=== PATIENT | male | born 1995 | race Caucasian/White ===

== ENCOUNTER 2024-10-14 08:23 | Emergency (ER) | payer SELFPAY ==
[2024-10-14 08:53] LABS: BASOPHILS ABSOLUTE AUTO 0.03 K/uL (0.00-0.20); BASOPHILS PERCENT AUTO 0.5 % (0.0-2.0); EOSINOPHILS ABSOLUTE AUTO 0.09 K/uL (0.00-0.50); EOSINOPHILS PERCENT AUTO 1.5 % (0.0-5.0); HEMATOCRIT 47.5 % (39.0-49.0); HEMOGLOBIN 15.1 g/dL (13.1-16.8); IMMATURE GRAN ABSOLUTE AUTO 0.02 10^3/uL (0.00-0.04); IMMATURE GRAN PERCENT AUTO 0.3 % (0.0-0.4); LYMPHOCYTES ABSOLUTE AUTO 2.11 K/uL (0.50-3.50); MEAN CORPUSCULAR HEMOGLOBIN 23.4 pg (28.2-33.3); MEAN CORPUSCULAR HGB CONC 31.8 g/dL (31.7-36.0); MEAN CORPUSCULAR VOLUME 73.5 fL (84.0-98.0); MONOCYTES ABSOLUTE AUTO 0.56 K/uL (0.00-1.00); MONOCYTES PERCENT AUTO 9.3 % (2.0-14.0); NEUTROPHILS ABSOLUTE AUTO 3.22 K/uL (1.40-7.00); NEUTROPHILS PERCENT AUTO 53.4 % (45.0-80.0); PLATELET COUNT,PLT 220 K/uL (150-350); RED BLOOD CELL COUNT 6.46 M/uL (4.33-5.41); RED CELL DISTRIBUTION WIDTH 15.4 % (11.2-14.1)
[2024-10-14 08:56] LABS: APPEARANCE,URINE CLEAR; BILIRUBIN,URINE NEGATIVE (NEGATIVE); COLOR,URINE YELLOW; GLUCOSE,URINE NEGATIVE (NEGATIVE); KETONES,URINE NEGATIVE (NEGATIVE); LEUKOCYTE ESTERASE,URINE NEGATIVE (NEGATIVE); NITRITE,URINE NEGATIVE (NEGATIVE); OCCULT BLOOD,URINE NEGATIVE (NEGATIVE); PROTEIN,URINE NEGATIVE (NEGATIVE); UROBILINOGEN,URINE 0.2 E.U./dL (0.2-1.0)
[2024-10-14 09:17] LABS: ALBUMIN 3.9 g/dL (3.4-5.0); ANION GAP 6.7 meq/L (7-15); BILIRUBIN TOTAL 0.8 mg/dL (0.2-1.0); CALCIUM 9.1 mg/dL (8.5-10.1); CARBON DIOXIDE,CO2 28.3 mmol/L (21.0-32.0); CREATININE 0.93 mg/dL (0.51-1.17); EST CRCL DRUG DOSING (CG) 114.41 mL/min; PROTEIN TOTAL,TP 7.5 g/dL (6.4-8.2)
== END 2024-10-14 10:10 | disposition home or self-care (01) ==
LOC: LL.ED 08:23
DX: K40.90 Unilateral inguinal hernia, without obstruction or gangrene, not specified as recurrent (principal); F17.200 Nicotine dependence, unspecified, uncomplicated
CPT/HCPCS: 36415; 76870; 80053; 81003; 85025; 99284